=== PATIENT | female | born 1995 | race African-American/Black ===

== ENCOUNTER 2019-02-25 07:10 | Emergency (ER) | payer SELFPAY ==
[~2019-02-25] VITALS: Ht 167.6 cm; Wt 60.0 kg
[2019-02-25] MEDS ORDERED: ACETAMINOPHEN 325MG TABLET PO ONE (08:15)
[2019-02-25] MEDS ORDERED: LORAZEPAM 1MG TABLET PO ONE (08:15)
[2019-02-25 09:20] VITALS: BP 127/64
== END 2019-02-25 09:23 | disposition home or self-care (01) ==
LOC: ER 07:10
DX: S00.83XA Contusion of other part of head, initial encounter (principal); F41.0 Panic disorder [episodic paroxysmal anxiety]; F43.0 Acute stress reaction; R03.0 Elevated blood-pressure reading, without diagnosis of hypertension; V49.49XA Driver injured in collision with other motor vehicles in traffic accident, initial encounter; Y93.89 Activity, other specified; Y92.411 Interstate highway as the place of occurrence of the external cause
CPT/HCPCS: 99283